=== PATIENT | female | born 1950 | race Caucasian/White ===

== ENCOUNTER 2017-07-26 06:19 | Emergency (ER) | payer MEDICARE ==
[~2017-07-26] VITALS: Ht 162.6 cm; Wt 59.4 kg
[2017-07-26] MEDS ORDERED: RESTASIS0.05 % OU (06:33)
[2017-07-26] MEDS ORDERED: TURMERIC CURCU500 MG PO (06:34)
[2017-07-26] MEDS ORDERED: LEVOTHYROXIN75 MCG PO (06:35)
[2017-07-26] MEDS ORDERED: ASPIRIN81 MG PO (06:36)
[2017-07-26 06:58] LABS: URINE BLOOD DIPSTICK LARGE (NEGATIVE); URINE COLOR YELLOW; URINE GLUCOSE - DIPSTICK NEGATIVE (NEGATIVE); URINE KETONE TRACE mg/dL (NEGATIVE); URINE PROTEIN - DIPSTICK 100 mg/dL (NEG-TRACE); URINE SPECIFIC GRAVITY 1.025
[2017-07-26 07:29] LABS: URINE BILIRUBIN - DIPSTICK NEGATIVE (NEGATIVE); URINE CLARITY CLOUDY; URINE LEUK ESTERASE MODERATE (NEGATIVE); URINE NITRITE - DIPSTICK POSITIVE (Negative)
[2017-07-26 07:31] LABS: URINE BACTERIA MANY hpf; URINE WBC >100 WBC/hpf (0-5)
[2017-07-26 07:32] LABS: URINE RBC 50-100 RBC/hpf (0-5)
[2017-07-26 07:33] LABS: URINE TRANSITIONAL EPI. CELLS FEW hpf
[2017-07-26] MEDS ORDERED: PYRIDIUM200 MG PO (07:37)
[2017-07-26] MEDS ORDERED: KEFLEX500 MG PO (07:37)
[2017-07-26 07:42] VITALS: BP 110/64
== END 2017-07-26 07:42 | disposition home or self-care (01) ==
LOC: ED 06:19
PROVIDERS: Emergency Medicine
DX: N39.0 Urinary tract infection, site not specified (principal)